=== PATIENT | female | born 1990 | race Hispanic/Latino ===

== ENCOUNTER 2023-07-17 09:39 | Outpatient (CLI) | payer OTHER | END 2023-07-17 09:40 | disposition home or self-care (01) | LOC: CSHULT 09:39 | PROVIDERS: ATTEND Nurse Practitioner Women's Health | DX: O34.12 Maternal care for benign tumor of corpus uteri, second trimester (principal); O44.02 Complete placenta previa NOS or without hemorrhage, second trimester; D25.9 Leiomyoma of uterus, unspecified; Z3A.22 22 weeks gestation of pregnancy | CPT/HCPCS: 76805 ==

== ENCOUNTER 2023-10-30 10:03 | Inpatient (IN) | payer MEDICAID, OTHER, SELFPAY ==
[2023-10-29 13:25] LABS: Hematocrit 37.9 % (34.9-44.5); Hemoglobin 12.8 g/dL (12.0-15.5); Platelet Count 240 10x3/uL (150-450)
[2023-10-29 14:06] LABS: Syphilis Antibody Nonreactive (Nonreactive); Syphilis Antibody Index 0.04 S/CO (<1.00 Non-Reactive)
[2023-10-29 14:09] LABS: HBsAg Index 0.17 S/CO (0-0.99); HIV (1/2) Antibody/Antigen Non-Reactive (NonReactive); HIV 1/2 INDEX 0.15 S/CO (<1.00); Hep B Surf Ag Non-Reactive S/CO (NonReactive)
[2023-10-30] MEDS ORDERED: Methylergonovine 0.2 MG/ML VIAL IM PRN (10:07)
[2023-10-30] MEDS ORDERED: Bicitra 30 ML UDCUP PO PRN (10:07)
[2023-10-30] MEDS ORDERED: hydrALAZINE 20 MG/ML VIAL SLOW IVP PRN ×2 (10:07→17:43)
[2023-10-30] MEDS ORDERED: CEFAZOLIN 2 GM in Sodium Chloride 0.9% 100 ML IVPB SCH (10:07)
[2023-10-30] MEDS ORDERED: Tranexamic Acid 1,000 MG/10 ML VIAL IVP PRN (10:07)
[2023-10-30] MEDS ORDERED: Misoprostol 200 MCG TAB PR PRN (10:07)
[2023-10-30] MEDS ORDERED: Carboprost 250 MCG/ML AMP IM PRN (10:07)
[2023-10-30] MEDS ORDERED: Promethazine HCl 25 MG/ML VIAL IM PRN ×3 (10:07→17:43)
[2023-10-30] MEDS ORDERED: Lactated Ringer's 1,000 ML IV SCH (10:07)
[2023-10-30] MEDS ORDERED: Diphenoxylate HCl/Atropine Tablet PO PRN (10:07)
[2023-10-30] MEDS ORDERED: Oxytocin 30 units/NS 500 ML 500 ML IV SCH (10:07)
[2023-10-30] MEDS ORDERED: Famotidine/PF 20 mg/2ml Vial SLOW IVP PRN (10:07)
[2023-10-30] MEDS ORDERED: Ondansetron PF 4 MG/2 ML Vial IVP PRN ×3 (10:07→11:53)
[2023-10-30 10:46] VITALS: BMI 34.9
[2023-10-30] MEDS ORDERED: diphenhydrAMINE 50 MG/ML VIAL IVP PRN (11:53)
[2023-10-30] MEDS ORDERED: Naloxone HCl 0.4 mg/ml Vial IV PRN (11:53)
[2023-10-30] MEDS ORDERED: Meperidine HCl/PF 25 MG (1 mL) VIAL SLOW IVP PRN (11:53)
[2023-10-30] MEDS ORDERED: Naloxone HCl 0.4 mg/ml Vial IVP PRN ×2 (11:53)
[2023-10-30] MEDS ORDERED: Moisturizing Cream (Eucerin) 113 GM JAR TOP PRN (11:53)
[2023-10-30] MEDS ORDERED: fentaNYL 50 mcg/mL 1 mL Vial SLOW IVP PRN (11:53)
[2023-10-30] MEDS ORDERED: Communication Order-Pharmacy FS SCH (12:00)
[2023-10-30] MEDS ORDERED: Meperidine HCl/PF 25 MG (1 mL) VIAL IM PRN (17:43)
[2023-10-30] MEDS ORDERED: Lanolin Ointment 7 GM TUBE TOP PRN (17:43)
[2023-10-30] MEDS ORDERED: diphenhydrAMINE 25 MG CAP PO PRN (17:43)
[2023-10-30] MEDS ORDERED: Bisacodyl 10 MG SUPP PR PRN (17:43)
[2023-10-30] MEDS ORDERED: Ketorolac Tromethamine 30 MG (1 mL) VIAL IVP PRN (18:00)
[2023-10-30] MEDS ORDERED: Ketorolac Tromethamine 30 MG (1 mL) VIAL IVP SCH (18:00)
[2023-10-30] MEDS: Tranexamic Acid 1,000 MG/10 ML VIAL ONE (19:19)
[2023-10-30] MEDS: Morphine PF 10 MG/10 ML VIAL ONE (19:19)
[2023-10-30] MEDS: Ondansetron PF 4 MG/2 ML Vial ONE (19:19)
[2023-10-30] MEDS: PHENYLEPHRINE-NS 100 MCG/ML 10 ML SYRINGE ONE (19:19)
[2023-10-30] MEDS: Carboprost 250 MCG/ML AMP ONE (19:19)
[2023-10-30] MEDS: Misoprostol 200 MCG TAB ONE (19:19)
[2023-10-30] MEDS: Methylergonovine 0.2 MG/ML VIAL ONE (19:19)
[2023-10-30] MEDS: ePHEDrine Sulfate 50 MG/10 ML VIAL ONE (19:19)
[2023-10-30] MEDS: Boostrix 0.5 ML (Tdap) VIAL (>/=7 yrs of age) IM ONE (19:20)
[2023-10-30] MEDS: Oxytocin 10 UNITS/ML VIAL ONE (19:20)
[2023-10-30] MEDS: Promethazine HCl 25 MG/ML VIAL ONE (19:20)
[2023-10-30] MEDS: Phenylephrine 40 MG/NS 250 ML 250 ML ONE (19:20)
[2023-10-30] MEDS: Ketorolac Tromethamine 30 MG (1 mL) VIAL ONE (19:20)
[2023-10-30] MEDS: Ferrous Sulfate 325 MG TAB PO SCH (19:21)
[2023-10-30] MEDS: Docusate 100 MG CAP PO SCH (19:21)
[2023-10-30] MEDS: Ketorolac Tromethamine 30 MG (1 mL) VIAL IVP SCH (19:50)
[2023-10-30] MEDS: Ondansetron PF 4 MG/2 ML Vial IVP PRN (19:52)
[2023-10-31] MEDS: Ketorolac Tromethamine 30 MG (1 mL) VIAL IVP SCH (02:00)
[2023-10-31 03:54] LABS: Hematocrit 28.9 % (34.9-44.5); Hemoglobin 9.6 g/dL (12.0-15.5); Mean Corpuscular HGB CONC 33.2 g/dL (32.0-36.0); Mean Corpuscular Hemoglobin 30.3 pg (27.0-33.0); Mean Corpuscular Volume 91.2 fL (81.6-98.3); Mean Platelet Volume 10.7 fL (7.4-10.4); Platelet Count 186 10x3/uL (150-450); Red Blood Cell (RBC) Count 3.17 10x6/uL (3.90-5.03); White Blood Cell (WBC) Count 12.1 10x3/uL (3.5-10.5)
[2023-10-31] MEDS: Prenatal Vitamin 1 TAB PO SCH (08:48)
[2023-10-31] MEDS: HYDROcodone/Acetaminophen 5/325 mg Tablet PO PRN ×2 (08:49→18:36)
[2023-10-31] MEDS: Ibuprofen 800 MG TAB PO SCH (21:53)
[2023-11-01] MEDS: Simethicone Chewable 80 MG TAB PO PRN (08:24)
[2023-11-01] MEDS: Milk Of Magnesia 30 ML UDCUP PO PRN (11:22)
[2023-11-02 07:56] VITALS: BP 110/71; TEMP 98.5
== END 2023-11-02 16:45 | disposition home or self-care (01) | DRG 788 ==
LOC: CSHLD 10:03 → CSHPED 16:46
PROVIDERS: ADMIT Family Medicine; ATTEND Family Medicine
PROC: 10D00Z1 Extraction of Products of Conception, Low, Open Approach (ICD-10-PCS; principal; 2023-10-30)
DX: O44.03 Complete placenta previa NOS or without hemorrhage, third trimester (principal); O34.13 Maternal care for benign tumor of corpus uteri, third trimester; D25.9 Leiomyoma of uterus, unspecified; Z3A.36 36 weeks gestation of pregnancy; Z37.0 Single live birth; Z79.82 Long term (current) use of aspirin; Z79.899 Other long term (current) drug therapy
CPT/HCPCS: 36415; 51702; 85014; 85018; 85027; 85049; 86780; 86850; 86900; 86901; 87340; 87389; J1885; J2274; J2405; J2550; J2590